=== PATIENT | male | born 1965 | race Caucasian/White ===

== ENCOUNTER 2018-07-16 10:09 | Emergency (ER) | payer BC ==
[2018-07-16] MEDS ORDERED: Lidocaine 2% with EPINEPHrine 1:200,000 20 ML SDV INFILT ONE (10:10)
--- NOTE | 2018-07-16 12:47 | EDM.PDOC ---
ED HPI GENERAL MEDICAL PROBLEM - General Chief Complaint: Upper Extremity Injury/Pain Stated Complaint: kaleb nail lower arm Time Seen by Provider: 07/16/18 12:15 Source of Information: Reports: Patient History Limitations: Reports: No Limitations - History of Present Illness INITIAL COMMENTS - FREE TEXT/NARRATIVE: Patient was taking off a quad store closure mechanism and he hasn't reported. As he pulled out the nail his right dorsum, mid distal forearm caught a nail and lacerated his dorsum of his forearm. No Compromise sensation of feeling or strength in his hand. He has a history of hypertension once healthy. Single does not drink alcoholic beverages or smoke and takes amlodipine 2.5 mg twice a day for hypertension Onset: Today Onset Date: 07/16/18 Onset Time: 12:20 Location: Reports: Upper Extremity, Right Front/Back Body Image: 1 - 3 cm tansdermal into sub q but not involve muscle. 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: Other (see below) (none) - Related Data Allergies Allergy/AdvReac Type Severity Reaction Status Date / Time No Known Allergies Allergy Verified 07/16/18 12:29 Home Meds: Home Meds amLODIPine Besylate [Amlodipine Besylate] 2.5 mg BID 07/16/18 [History] Review of Systems - Review of Systems Review Of Systems: See Below Constitutional: Reports: No Symptoms Eyes: Reports: No Symptoms Ears: Reports: No Symptoms Nose: Reports: No Symptoms Mouth/Throat: Reports: No Symptoms Respiratory: Reports: No Symptoms Cardiovascular: Reports: No Symptoms GI/Abdominal: Reports: No Symptoms Genitourinary: Reports: No Symptoms Musculoskeletal: Reports: No Symptoms Skin: Reports: No Symptoms Neurological: Reports: No Symptoms Psychiatric: Reports: No Symptoms ED EXAM, GENERAL - Physical Exam Exam: See Below Free Text/Narrative:: c 3 cm laceration patient with distal dorsum right forearm trends durable trans -subcutaneous but not involving muscle this occurred with a nail tear laceration and tunnels slightly radially. General Appearance: Alert, Mild Distress Ears: Normal External Exam Nose: Normal Inspection Throat/Mouth: Normal Inspection, Normal Lips, Normal Teeth, Normal Gums, Normal Oropharynx, Normal Voice Head: Atraumatic, Normocephalic Neck: Normal Inspection Respiratory/Chest: No Respiratory Distress, Lungs Clear, Normal Breath Sounds, No Accessory Muscle Use Cardiovascular: Normal Peripheral Pulses, Regular Rate, Rhythm, No JVD, No Murmur, No Rub Peripheral Pulses: 1+: Brachial (L), Brachial (R) GI/Abdominal: Normal Bowel Sounds, Soft, Non-Tender, No Organomegaly, No Distention (Male) Exam: Deferred Rectal (Males) Exam: Deferred Back Exam: Normal Inspection Extremities: Normal Inspection, Normal Range of Motion, Non-Tender, No Pedal Edema, Normal Capillary Refill Neurological: Alert Lymphatic: No Adenopathy Course - Vital Signs Last Recorded V/S: Last Vital Signs Temp 36.7 C 07/16/18 10:48 Pulse 68 07/16/18 10:48 Resp 18 07/16/18 10:48 BP 151/92 H 07/16/18 10:48 Pulse Ox 98 07/16/18 10:48 - Radiology Interpretation Free Text/Narrative:: Procedure patient's forearm was cleansed under the sink was surgical and iodoform scrub brush and then lavaged vigorously and then injected by infiltration with lidocaine 2% epinephrine once topical anesthesia was obtained and was given a repeat lavage with surgical sponge cleansing for 5 minutes with surgical scrub brush under running water of the sink. Patient's tolerated this well. Wound was freshened with excision of 2 mm each side of the wound because her regular tear jagged edge of the dermis. The wound length was originally 3 cm. Once it was revised was 4 cm. 8 stitches interrupted Ethilon placed on the dermis and 4 stitches 4-0 Vicryl interrupted subcuticularly to reapproximate the tissues. Patient tolerated procedure well. Patient dispensed with Keflex 500 mg 3 times a day 21 table ibuprofen 600 mg and Tylenol 1000 mg every 6 hours together. Follow-up with his 10-14 days" Departure - Departure Time of Disposition: 12:50 Disposition: Home, Self-Care 01 Clinical Impression: Laceration of forearm, right Qualifiers: Encounter type: initial encounter Qualified Code(s): S51.811A - Laceration without foreign body of right forearm, initial encounter - Discharge Information Referrals: Vishnu Shelby MD [Primary Care Provider] - Forms: ED Department Discharge Additional Instructions: sutures in for 10-14 days double layer closure tylenol 1000 mg with 600 mg of ibuprofen every 6 hour for pain any signs of infection see your MD immediately keflex 500 mg tid for 7 days
== END 2018-07-16 12:47 | disposition home or self-care (01) ==
LOC: FB.ED 10:09
DX: S51.811A Laceration without foreign body of right forearm, initial encounter (principal); I10 Essential (primary) hypertension; Z79.899 Other long term (current) drug therapy; W26.8XXA Contact with other sharp object(s), not elsewhere classified, initial encounter
CPT/HCPCS: 12002; 12032; 99282